=== PATIENT | male | born 1960 | race African-American/Black ===

== ENCOUNTER 2018-10-23 10:08 | Outpatient (RCR) | payer OTHER ==
[2018-10-23] VITALS (11 sets, daily range): BP systolic 102–121; BP diastolic 66–78; PULSE 86–97; TEMP 97.9–99
--- NOTE | 2018-10-23 17:25 | NUR ---
Pt assisted to wheelchair and escorted out with [facility] staff,assisted into van.
== END 2018-10-23 17:25 | disposition home or self-care (01) ==
LOC: EUO 10:08
DX: C34.11 Malignant neoplasm of upper lobe, right bronchus or lung (principal); D64.9 Anemia, unspecified
CPT/HCPCS: J7050; P9016

== ENCOUNTER 2018-10-27 17:03 | Emergency (ER) | payer OTHER ==
[~2018-10-27] VITALS: Ht 182.9 cm; Wt 66.8 kg
[2018-10-27 17:09] VITALS: TEMP 97.1
[2018-10-27] MEDS ORDERED: LIPITOR 10MG10 MG PO (17:22)
[2018-10-27] MEDS ORDERED: NEURONTIN300 MG/CAP PO (17:23)
[2018-10-27] MEDS ORDERED: HCTZ 25MG TAB25 MG PO (17:23)
[2018-10-27] MEDS ORDERED: TYLENOL W/COD1 UDTAB PO (17:24)
[2018-10-27] MEDS ORDERED: FENTANYL 25 MCG TD (17:24)
[2018-10-27] MEDS ORDERED: TYLENOL 500MG500 MG PO (17:25)
[2018-10-27] MEDS ORDERED: FOLIC ACID 11 MG/TA1 PO (17:25)
[2018-10-27] MEDS ORDERED: COLACE 100100 MG/CAP PO (17:26)
[2018-10-27 17:36] LABS: BASO % 0.3 % (0.0-2.0); GRAN # 7.9 (1.4-6.5); GRAN % 76.1 % (42.2-75.2); HEMATOCRIT 31.9 % (42.0-52.0); HEMOGLOBIN 10.1 g/dl (13.5-18.0); LYMPH # 0.9 (1.2-3.4); LYMPH % 8.8 % (20.0-51.0); MEAN CELL VOLUME 85 fl (80.0-100.0); MEAN CORPUSCULAR HEMOGLOBIN 27 pg (27.0-31.0); MEAN CORPUSCULAR HGB CONC 32 g/dl (33.0-37.0); MEAN PLATELET VOLUME 9.7 fl (7.4-10.4); MONO # 1.5 (0.1-0.6); MONO % 14.2 % (1.7-9.3); PLATELET COUNT 282 K/mm3 (130-400); RED BLOOD COUNT 3.77 M/mm3 (4.20-5.60); REDCELL DISTRIBUTION WIDTH-CV 17.2 % (11.5-14.5)
[2018-10-27] MEDS ORDERED: NORVASC 10MG10 MG PO (17:48)
[2018-10-27 17:50] LABS: ALANINE AMINOTRANSFERASE < 6 U/L (21-72); ALBUMIN 4.4 gm/dL (3.5-5.0); ALKALINE PHOSPHATASE 94 U/L (50-136); ANION GAP 18 mmol/L (7-16); AST,SGOT 40 U/L (15-37); BILIRUBIN,TOTAL 0.7 mg/dL (0.0-1.0); BLOOD UREA NITROGEN 24 mg/dL (9-20); CALCIUM 10.7 mg/dL (8.4-10.2); CARBON DIOXIDE 26 mmol/L (22-30); CHLORIDE 94 mmol/L (98-107); CREATININE, serum 0.65 (0.66-1.25); GLUCOSE 131 mg/dL (74-106); POTASSIUM 3.1 mmol/L (3.4-5.0); SODIUM 137 mmol/L (137-145); TOTAL PROTEIN 9.7 gm/dL (6.4-8.2)
[2018-10-27] MEDS ORDERED: ASPIRIN 81M81 MG/TA2 PO (17:50)
[2018-10-27 18:02] LABS: COLLECTION METHOD CLEAN CATCH
[2018-10-27 18:02] LABS: C-REACTIVE PROTEIN 11.6 mg/dL (0.0-0.9)
[2018-10-27 18:10] LABS: MUCOUS Present /lpf; PH 5 (5-8); SQUAMOUS EPITHELIAL 0-2 /hpf; URINE APPEARANCE Hazy; URINE BACTERIA None Seen /hpf; URINE BILIRUBIN Positive (NEGATIVE); URINE BLOOD Negative (NEGATIVE); URINE COLOR Yellow; URINE GLUCOSE Negative (NEGATIVE); URINE KETONE Trace (NEGATIVE); URINE LEUKOCYTE ESTERASE Negative (NEGATIVE); URINE NITRATE Negative (NEGATIVE); URINE PROTEIN(semi-quant) 1+ (NEGATIVE); URINE RBC 0-2 /hpf; URINE UROBILINOGEN >=4.0 mg/dL (NEGATIVE)
[2018-10-27 20:13] VITALS: BP 128/92; PULSE 101
== END 2018-10-27 20:14 | disposition short-term general hospital (02) ==
LOC: COL.ER 17:03
PROVIDERS: Emergency Medicine
DX: C34.90 Malignant neoplasm of unspecified part of unspecified bronchus or lung (principal); C79.51 Secondary malignant neoplasm of bone; M48.00 Spinal stenosis, site unspecified; I10 Essential (primary) hypertension; E78.00 Pure hypercholesterolemia, unspecified; F17.210 Nicotine dependence, cigarettes, uncomplicated
CPT/HCPCS: J1100; J2405; J3010; J7030; Q9967